=== PATIENT | female | born 1995 ===

== ENCOUNTER 2017-03-10 08:49 | Emergency (ER) | payer MEDICAID ==
[2017-03-10 08:49] VITALS: BMI 23.0
[2017-03-10] MEDS ORDERED: Sodium Chloride 0.9% 1,000 ML IV STA ×2 (09:46→11:09)
[2017-03-10] MEDS ORDERED: Sodium Chloride 0.9% 1,000 ML ONE ×2 (09:58→11:51)
[2017-03-10 10:25] LABS: BASO # 0.1 K/uL (0.0-0.2); BASO % 1.1 % (0.0-2.0); EOS % 0.3 % (0.0-4.0); HEMATOCRIT 36.3 % (34.0-47.0); LYMPH # 0.5 K/uL (1.0-4.3); LYMPH % 5.4 % (20.0-40.0); MEAN CORPUSCULAR HEMOGLOBIN 27.2 pg (27.0-31.0); MEAN CORPUSCULAR HGB CONC 32.3 g/dL (33.0-37.0); MEAN PLATELET VOLUME 7.3 fL (7.2-11.7); MONO # 0.5 K/uL (0.0-0.8); MONO % 5.3 % (0.0-10.0); PLATELET COUNT 343 K/uL (130-400); RED CELL DISTRIBUTION WIDTH 14.5 % (11.5-14.5); WHITE BLOOD COUNT 8.8 K/uL (4.8-10.8)
[2017-03-10 10:38] LABS: AMYLASE 93 U/L (30-110)
[2017-03-10 10:59] LABS: NEUTROPHIL 78 % (50-75); TOTAL CELLS COUNTED 100
--- NOTE | 2017-03-10 11:12 | C.PDOC ---
History Of Present Illness 21 year old patient presents to the ED complaining of body aches, headache and not feeling well for the past 3 days. Patient also complains of nausea, vomiting and diarrhea since this morning. Patient notes her daughter had diarrhea for the past 4 days. Time Seen by Provider: 03/10/17 09:04 Chief Complaint (Nursing): Abdominal Pain History Per: Patient History/Exam Limitations: no limitations Onset/Duration Of Symptoms: Days (3), Worse Since (this morning) Current Symptoms Are (Timing): Still Present Context: Other Severity: Mild Pain Scale Rating Of: 3 Location Of Pain/Discomfort: Other (body aches) Radiation Of Pain To:: None Quality Of Discomfort: Aching, "Pain" Associated Symptoms: Nausea, Vomiting, Diarrhea Exacerbating Factors: None Alleviating Factors: None Last Bowel Movement: Today Recent travel outside of the [place]: No Past Medical History Reviewed: Historical Data, Nursing Documentation, Vital Signs Vital Signs: Last Vital Signs Temp 97.9 F 03/10/17 12:55 Pulse 60 03/10/17 12:55 Resp 14 03/10/17 12:55 BP 94/52 L 03/10/17 12:55 Pulse Ox 100 03/10/17 13:42 Surgical History: Tonsillectomy - [facility] Procedures MANUAL ASSIST DELIV NEC (11/05/14) Family History: States: Unknown Family Hx - Social History Hx Alcohol Use: No Hx Substance Use: No Review Of Systems Except As Marked, All Systems Reviewed And Found Negative. Constitutional: Positive for: Other (body aches) Gastrointestinal: Positive for: Nausea, Vomiting, Diarrhea Neurological: Positive for: Headache Physical Exam - Physical Exam Appears: Non-toxic, No Acute Distress Skin: Warm, Dry, Other (afebrile, no meningial signs) Head: Atraumatic, Normacephalic Eye(s): bilateral: Normal Inspection, PERRL, EOMI Oral Mucosa: Moist Neck: Normal ROM, Supple Chest: Symmetrical Cardiovascular: Rhythm Regular Respiratory: Normal Breath Sounds, No Rales, No Rhonchi, No Wheezing Gastrointestinal/Abdominal: Soft, Tenderness (mild, diffuse), No Guarding, No Rebound Back: Normal Inspection, No CVA Tenderness Extremity: Normal ROM Neurological/Psych: Oriented x3, Normal Speech, Normal Cognition Gait: Steady ED Course And Treatment - Laboratory Results Result Diagrams: 03/10/17 10:20 03/10/17 11:22 O2 Sat by Pulse Oximetry: 100 (room air) Pulse Ox Interpretation: Normal Progress Note: Plan: Protonix, IV fluids, Zofran, Labs. Progress: Labs are significant for Bandemia. Patient will be po challenged. Upon reassessment, patient is able to tolerate po in the ED. Disposition - Disposition Referrals: Sanchez Driscoll MD [Non-Staff] - Disposition: HOME/ ROUTINE Disposition Time: 14:28 Condition: IMPROVED Additional Instructions: Follow up with your PMD within 1-2 days. Return to Ed if feel worse. Prescriptions: Famotidine [Pepcid] 20 mg PO BID #20 tab Ondansetron [Zofran Odt] 1 - 2 tab PO .Q4-6H PRN #20 odt PRN Reason: Nausea/Vomiting Instructions: Gastroenteritis (ED) - Clinical Impression Clinical Impression: Gastroenteritis - PA / PRESS OPERATOR APPRENTICE / Resident Statement MD/DO has reviewed & agrees with the documentation as recorded. - Scribe Statement The provider has reviewed the documentation as recorded by the Scribe Jaqueline Chu All medical record entries made by the Scribe were at my direction and personally dictated by me. I have reviewed the chart and agree that the record accurately reflects my personal performance of the history, physical exam, medical decision making, and the department course for this patient. I have also personally directed, reviewed, and agree with the discharge instructions and disposition.
[2017-03-10 11:37] LABS: RBC URINE 3 /hpf (0-3); URINE BILIRUBIN NEGATIVE (NEGATIVE); URINE BLOOD 1+ (NEGATIVE); URINE COLOR Amber (YELLOW); URINE GLUCOSE (UA) NORMAL (Normal); URINE KETONE NEGATIVE (NEGATIVE); URINE LEUKOCYTE ESTERASE TRACE Leu/uL (Negative); URINE PROTEIN 1+ mg/dL (NEGATIVE); URINE UROBILINOGEN NORMAL mg/dL (0.2-1.0); WBC URINE 1 /hpf (0-5)
[2017-03-10 11:39] LABS: CHLORIDE 107 mmol/L (98-107); SODIUM 138 mmol/L (132-148)
[2017-03-10 11:42] LABS: ALB/GLOB RATIO 1.7 (1.0-2.1); AST/SGOT 26 U/L (14-36); BILIRUBIN,TOTAL 0.6 mg/dL (0.2-1.3); BLOOD UREA NITROGEN 16 mg/dL (7-17); CARBON DIOXIDE 20 mmol/L (22-30); GFR AFRICAN-AMERICAN > 60; GLUCOSE,RANDOM 82 mg/dL (65-105); TOTAL PROTEIN 7.2 g/dL (6.3-8.3)
[2017-03-10 11:43] LABS: ALKALINE PHOSPHATASE 55 U/L (38-126); ALT/SGPT 26 U/L (9-52); CALCIUM 8.7 mg/dl (8.6-10.4)
[2017-03-10 13:41] VITALS: O2SAT 100
[2017-03-10 14:45] VITALS: BP 99/61; PULSE 62; RESP 18; TEMP 97.7
== END 2017-03-10 14:45 | disposition home or self-care (01) ==
LOC: C.ER 08:49
DX: K52.9 Noninfective gastroenteritis and colitis, unspecified (principal)
CPT/HCPCS: 80053; 81001; 82150; 83690; 84703; 85025; 96361; 96374; 96375; 99285; C9113; J2405; J7040